=== PATIENT | male | born 1960 | race Caucasian/White ===

== ENCOUNTER 2018-07-12 05:57 | Day surgery (SDC) | END 2018-07-12 14:36 | disposition home or self-care (01) ==

== ENCOUNTER 2019-04-27 11:30 | Emergency (ER) | payer OTHER ==
[~2019-04-27] VITALS: Ht 167.6 cm; Wt 86.6 kg
[~2019-04-27 11:30] MED LIST: BENA40TA56 PO; GLIP10TA14 PO; METF-849 PO; SITA1TAB5 PO
[2019-04-27 11:44] VITALS: Ht 167.6 cm; Wt 86.6 kg
[2019-04-27] MEDS ORDERED: VANCOMYCIN 1 GM (PMX) 250 ML IVPB STA (12:30)
[2019-04-27] MEDS ORDERED: PIPER-TAZO 3.375 GM IV (PMX) 100 ML IVPB STA (12:30)
[2019-04-27] MEDS ORDERED: INSULIN LISPRO 100 UNIT/ML VIAL SC STA (14:24)
[2019-04-27] MEDS ORDERED: LEVO500T48 PO (14:28)
[2019-04-27] MEDS ORDERED: SULF1TAB31 PO (14:28)
--- NOTE | 2019-04-27 14:33 | ERD ---
ER Documentation Chief Complaint Chief Complaint Sent from Dr. Moraes to evaluate and admit for Left foot cellulitis/diabetic HPI This is a 58-year-old male with a history of insulin-dependent diabetes mellitus who presents to the emergency department after being seen and evaluated prior to arrival by his primary care physician Dr. Moraes. The patient indicates that for the past week he had an ulcer on the plantar surface of his left foot. He indicates that the pain has increased over the past several days. The pain is exacerbated when he ambulates. He also noticed that the redness of his left foot has worsened which is what prompted him to be evaluated today by his primary care physician. He said no fevers or shaking or chills. He denies any chest pain. He has no shortness of breath at rest or exertion. He has not taken any antipyretics prior to arrival. ROS All systems reviewed and are negative except as per history of present illness. Medications Home Meds Active Scripts Sulfamethoxazole/Trimethoprim* (Bactrim Ds* Tablet) 1 Each Tablet, 1 TAB PO BID for 10 Days, TAB Prov:JACKLYN ROSENTHAL MD 04/27/19 Levofloxacin* (Levaquin*) 500 Mg Tablet, 500 MG PO DAILY for 10 Days, TAB Prov:JACKLYN ROSENTHAL MD 04/27/19 Reported Medications Glipizide* (Glipizide*) 10 Mg Tablet, 10 MG PO AC BREAKFAST, TAB 07/12/18 Benazepril Hcl* (Benazepril Hcl*) 40 Mg Tablet, 40 MG PO DAILY, #30 TAB 07/12/18 Metformin* (Glucophage*) 500 Mg Tab, 500 MG PO WITH MEALS, #90 TAB 07/12/18 Sitagliptin Phos/Metformin HCl (Janumet 50-1,000 mg Tablet) 1 Each Tablet, 1 EACH PO, TAB 07/12/18 Allergies Allergies: Coded Allergies: No Known Drug Allergies (Verified Allergy, Unknown, 07/12/18) PMhx/Soc Medical and Surgical Hx: pt denies Surgical Hx History of Surgery: No Anesthesia Reaction: No Hx Neurological Disorder: No Hx Respiratory Disorders: No Hx Cardiac Disorders: Yes (HTN) Hx Psychiatric Problems: No Hx Miscellaneous Medical Probl: No Hx Alcohol Use: No Hx Substance Use: No Hx Tobacco Use: No Smoking Status: Never smoker Physical Exam Vitals Vital Signs Date Temp Pulse Resp B/P (MAP) Pulse Ox O2 O2 Flow FiO2 Time Delivery Rate 04/27/19 98.5 73 18 130/93 99 Room Air 13:14 (105) 04/27/19 97.7 82 18 161/91 97 11:44 (114) Physical Exam Constitutional:Well-developed. Well-nourished. HEENT:Normocephalic. Atraumatic.Pupils were equal round reactive to light. Moist mucous membranes Respiratory: Not using accessory muscles of respiration.Lungs were clear to auscultation bilaterally. No rhonchi. No rales. No wheezing. Cardiovascular: Regular rate regular rhythm.No murmurs. No rubs were appreciated.S1, S2 normal. Distal pulses are palpable 2+ bilaterally Muscle skeletal: Full range of motion of both the upper and lower extremities bilaterally.Normal muscle tone.No assymetrical calf tenderness or swelling. Skin: No petechia, no purpura. No lesions on the palms or the soles of the feet. No maculopapular rash. Erythremia extending over the distal two thirds of the dorsal aspect of the left fifth and fourth metatarsals. Stage I ulcer between the interdigital left fourth and fifth webspaces on the plantar surface with no surrounding fluctuance or induration, mild tenderness and pain not out of proportion to physical exam with no subcutaneous emphysema. NEURO: Patient was alert, awake, orientated x3.No facial droop. Gait observed and normal with no ataxia.Speech had regular rate and rhythm. No focal neurological deficits. Result Diagram: 04/27/19 1252 04/27/19 1250 Results 24 hrs Laboratory Tests Test 04/27/19 12:50 04/27/19 12:52 Sodium Level 136 mmol/L Potassium Level 4.8 mmol/L Chloride Level 101 mmol/L Carbon Dioxide Level 27 mmol/L Anion Gap 8 Blood Urea Nitrogen 18 mg/dl Creatinine 1.01 mg/dl Est Glomerular Filtrat Rate mL/min > 60 mL/min Glucose Level 365 mg/dl Calcium Level 9.4 mg/dl Total Bilirubin 0.5 mg/dl Direct Bilirubin 0.00 mg/dl Indirect Bilirubin 0.5 mg/dl Aspartate Amino Transf (AST/SGOT) 14 IU/L Alanine Aminotransferase (ALT/SGPT) 20 IU/L Alkaline Phosphatase 96 IU/L Creatine Kinase 40 IU/L Creatine Kinase Index 1.8 Creatinine Kinase MB (Mass) 0.72 ng/ml Troponin I < 0.012 ng/ml C-Reactive Protein 4.1 mg/dl Total Protein 7.9 g/dl Albumin 3.9 g/dl Globulin 4.00 g/dl Albumin/Globulin Ratio 0.97 White Blood Count 9.1 10^3/ul Red Blood Count 5.18 10^6/ul Hemoglobin 14.6 g/dl Hematocrit 43.8 % Mean Corpuscular Volume 84.6 fl Mean Corpuscular Hemoglobin 28.2 pg Mean Corpuscular Hemoglobin Concent 33.3 g/dl Red Cell Distribution Width 13.0 % Platelet Count 259 10^3/UL Mean Platelet Volume 11.0 fl Immature Granulocytes % 0.500 % Neutrophils % 76.9 % Lymphocytes % 13.0 % Monocytes % 8.6 % Eosinophils % 0.5 % Basophils % 0.5 % Nucleated Red Blood Cells % 0.0 /100WBC Immature Granulocytes # 0.050 10^3/ul Neutrophils # 7.0 10^3/ul Lymphocytes # 1.2 10^3/ul Monocytes # 0.8 10^3/ul Eosinophils # 0.1 10^3/ul Basophils # 0.1 10^3/ul Nucleated Red Blood Cells # 0.0 10^3/ul Prothrombin Time 12.1 Sec Prothrombin Time Ratio 0.9 INR International Normalized Ratio 0.89 Activated Partial Thromboplast Time 26.8 Sec Current Medications Medications Dose Sig/Leatha Start Time Status Last (Trade) Ordered Route PRN Stop Time Admin Dose Reason Admin Vancomycin 250 ml @ ONCE STAT 04/27/19 DC 04/27/19 HCl 125 mls/hr IVPB 12:30 14:07 04/27/19 14:29 Piperacillin 100 ml @ ONCE STAT 04/27/19 DC 04/27/19 Sod/ 200 mls/hr IVPB 12:30 13:11 Tazobactam 04/27/19 12:59 Sod Insulin 5 unit ONCE STAT 04/27/19 DC Human SC 14:24 Lispro 04/27/19 14:27 (Humalog) Procedures/MDM The patient presented to the emergency department with a spreading erythematous superficial infection of the skin and subcutaneous tissues. My differential diagnosis included but was not limited to necrotizing fasciitis, lymphangitis, thrombophlebitis, deep vein thrombosis, allergic reaction, neoplasm, gout or abscess. Predisposing factors of the progressive spread of erythema, warmth, pain and tenderness was considered such as lymphedema, tinea pedis, open wounds, prior trauma or surgery, pre-existing skin lesion (furuncle), retained foreign body, injection drug use or vascular or immune compromise. The patient was placed on antibiotics to cover Staphylococcus aureus, including resistant strains such as community-acquired methicillin-resistant S. aureus. The patient was treated in the emergency department IV antibiotics given vancomycin and Zosyn after blood cultures have been obtained. 12 Lead EKG tracing ordered and reviewed by myself showed: Normal sinus rhythm of 71 bpm and no arrhythmia. ID interval normal. QRS duration widened at 124 ms with right bundle branch block No ST segment elevation No ST segment depression. No changes consistent with acute ischemia. Blood glucose was elevated with no ketosis. Patient was treated with subcutaneous insulin. I spoke with the [facility] renal physician Dr. Butler. Given his physical exam findings and the fact that the patient is afebrile no leukocytosis Dr. Butler stated he felt that the patient could be discharged and he will arrange for outpatient podiatry follow-up. I was in agreement with the medical plan. The patient felt comfortable being discharged home. I did not obtain any radiographic imaging as the symptoms have only been present for 1 week and my clinical suspicion was low for osteomyelitis or necrotizing fasciitis. The patient was sent home with a prescription of Levaquin and Bactrim as requested by Dr. Butler. Departure Diagnosis: Primary Impression: Diabetic foot ulcer Diabetic foot ulcer location: unspecified part of foot Diabetes mellitus type: other specified (including DAVE) Laterality: left Non-pressure ulcer stage: limited to breakdown of skin Qualified Codes: E13.621 - Other specified diabetes mellitus with foot ulcer; L97.521 - Non-pressure chronic ulcer of other part of left foot limited to breakdown of skin Additional Impressions: Cellulitis Hyperglycemia without ketosis Condition: Fair Patient Instructions: Cellulitis JACKLYN ROSENTHAL MD April 27, 2019 14:33
[2019-04-27 16:30] VITALS: BP 123/89; PULSE 74; RESP 16
== END 2019-04-27 16:38 | disposition home or self-care (01) ==
LOC: E/R 11:30
DX: E13.621 Other specified diabetes mellitus with foot ulcer (principal); I10 Essential (primary) hypertension; L97.521 Non-pressure chronic ulcer of other part of left foot limited to breakdown of skin; M79.672 Pain in left foot; Z79.84 Long term (current) use of oral hypoglycemic drugs
CPT/HCPCS: 80053; 82550; 82553; 82962; 84484; 85025; 85610; 85651; 85730; 86140; 86850; 86900; 86901; 87040; 93005; 96365; 96366; 96368; 96372; 99284; J1815; J2543; J3370